=== PATIENT | female | born 1965 | race Caucasian/White ===

== ENCOUNTER → 2021-12-25 09:37 | Outpatient (CLI) | payer OTHER, SELFPAY ==
[2021-12-25 10:53] LABS: Hemoglobin 13.1 g/dL (12.0-16.0); Mean Corpuscular HGB Conc 33.5 % (30-36); Mean Corpuscular Hemoglobin 30.3 PG (26-34); Mean Corpuscular Volume 90.5 fL (80-100); Platelet Count 313 X10^3/uL (150-400); Red Blood Cell Count 4.31 X10^6/uL (4.0-5.2); Red Cell Distribution Width 13.1 % (11.6-14.8); White Blood Cell Count 5.3 X10^3/uL (4.5-11.0)
[2021-12-25 11:01] LABS: Hemoglobin A1C% w Est Avg Glu 5.8 % (4.0-6.0)
[2021-12-25 11:12] LABS: Alanine Aminotransferase 27 IU/L (<35); Albumin 4.2 g/dL (3.5-5.0); Albumin Globulin Ratio 1.1 (1.0-2.8); Alkaline Phosphatase 60 U/L (38-126); Aspartate Aminotransferase 31 IU/L (14-36); BUN Creatinine Ratio 14.9 (6-22); Bilirubin Total 0.5 mg/dL (0.2-1.3); Blood Urea Nitrogen 13 mg/dL (7-17); Calcium 9.2 mg/dL (8.4-10.2); Carbon Dioxide 25 mmol/L (22-32); Chloride 105 mmol/L (98-107); Cholesterol 255 mg/dL (140-199); Estimated Glomerular Filt Rate > 60 mL/min (>60); Globulin 3.9 g/dL (1.7-4.1); Glucose 107 mg/dL (70-100); HDL Cholesterol 46 mg/dL (40-60); HEMOLYSIS < 15 (0-50); LDL Cholesterol Calculated 189 mg/dL (<100); Potassium 4.3 mmol/L (3.4-5.1); Sodium 140 mmol/L (137-145); Total Protein 8.1 g/dL (6.3-8.2); Triglycerides 98 mg/dL (35-150)
[2021-12-25 11:38] LABS: TSH w/ Reflex to FT4 2.45 uIU/mL (0.47-4.68)
== END ==
PROVIDERS: Family Provider Urology; PCP Internal Medicine; Referring Provider Internal Medicine; Visit Provider Internal Medicine
DX: R53.83 Other fatigue (principal); R73.01 Impaired fasting glucose
CPT/HCPCS: 36415; 80053; 80061; 83036; 84443; 85027

== ENCOUNTER → 2022-10-28 08:05 | Outpatient (CLI) | payer OTHER, SELFPAY ==
[2022-10-28 10:08] LABS: Hemoglobin A1C% w Est Avg Glu 5.5 % (4.0-6.0)
[2022-10-28 10:46] LABS: Cholesterol 262 mg/dL (140-199); Glucose 101 mg/dL (70-100); HDL Cholesterol 52 mg/dL (40-60); LDL Cholesterol Calculated 186 mg/dL (<100); Triglycerides 121 mg/dL (35-150)
[2022-10-31 21:33] LABS: QuantiFERON Mitogen Value >10.00 IU/mL (.); QuantiFERON Nil Value 0.19 IU/mL (.); QuantiFERON TB Gold Plus Negative (Negative); QuantiFERON TB1 Ag Value 0.09 IU/mL (.); QuantiFERON TB2 Ag Value 0.15 IU/mL (.)
== END ==
PROVIDERS: Family Provider Urology; PCP Internal Medicine; Referring Provider Internal Medicine; Visit Provider Internal Medicine
DX: E78.2 Mixed hyperlipidemia (principal); R73.01 Impaired fasting glucose; Z20.9 Contact with and (suspected) exposure to unspecified communicable disease
CPT/HCPCS: 36415; 80061; 82947; 83036; 86480

== ENCOUNTER → 2023-08-17 07:07 | Outpatient (CLI) | payer OTHER, SELFPAY ==
--- NOTE | 2023-08-17 07:10 | DI.RAD.S_ITS ---
PROCEDURE: XR SHOULDER RT MIN 2V INDICATIONS: shoulder pain TECHNIQUE: 3 views of the shoulder were acquired. COMPARISON: None. FINDINGS: Bones: No fractures or dislocations. No suspicious bony lesions. Visualized ribs appear intact. Mild degenerative changes of the acromioclavicular joint. Coracoclavicular and acromioclavicular intervals are maintained. Soft tissues: No suspicious soft tissue calcifications. IMPRESSION: No acute bony abnormality. Degenerative changes of the acromioclavicular joint. Dictated by: Dom Rios M.D. on 08/17/2023 at 8:53 Approved by: Dom Rios M.D. on 08/17/2023 at 8:54
--- NOTE | 2023-08-17 07:10 | DI.RAD.S_ITS ---
PROCEDURE: XR SHOULDER LT MIN 2V INDICATIONS: shoulder pain TECHNIQUE: 3 views of the shoulder were acquired. COMPARISON: None. FINDINGS: Bones: No fractures or dislocations. No suspicious bony lesions. Visualized ribs appear intact. Mild degenerative changes of the acromioclavicular joint. Coracoclavicular and acromioclavicular intervals are maintained. Soft tissues: No suspicious soft tissue calcifications. IMPRESSION: No acute bony abnormality. Mild acromioclavicular degenerative changes. Dictated by: Dom Rios M.D. on 08/17/2023 at 8:52 Approved by: Dom Rios M.D. on 08/17/2023 at 8:53
[2023-08-17 07:54] LABS: Add Manual Diff / Slide Review NO; Basophils Absolute Auto 100 /uL (0-100); Basophils Percent Auto 1.3 % (0-2); Eosinophils Absolute Auto 200 /uL (0-450); Eosinophils Percent Auto 2.4 % (2-4); Hematocrit 38.2 % (36-46); Hemoglobin 12.8 g/dL (12.0-16.0); Lymphocytes Absolute Auto 2100 /uL (1100-4500); Lymphocytes Percent Auto 31.3 % (25-40); Mean Corpuscular HGB Conc 33.4 % (30-36); Mean Corpuscular Hemoglobin 30.2 PG (26-34); Mean Corpuscular Volume 90.3 fL (80-100); Monocytes Absolute Auto 500 /uL (0-900); Monocytes Percent Auto 7.4 % (3-14); Neutrophils Absolute Auto 3900 /uL (1500-7000); Neutrophils Percent Auto 57.6 % (50-75); Platelet Count 337 X10^3/uL (150-400); Red Blood Cell Count 4.23 X10^6/uL (4.0-5.2); Red Cell Distribution Width 13.5 % (11.6-14.8); White Blood Cell Count 6.7 X10^3/uL (4.5-11.0)
[2023-08-17 08:04] LABS: Hemoglobin A1C% w Est Avg Glu 5.9 % (4.0-6.0)
[2023-08-17 08:13] LABS: Erythrocyte Sedimentation Rate 21 MM/HR (0-20)
[2023-08-17 08:21] LABS: Alanine Aminotransferase 28 IU/L (<35); Albumin 4.4 g/dL (3.5-5.0); Albumin Globulin Ratio 1.2 (1.0-2.8); Alkaline Phosphatase 60 U/L (38-126); Aspartate Aminotransferase 30 IU/L (14-36); BUN Creatinine Ratio 17.3 (6-22); Bilirubin Total 0.7 mg/dL (0.2-1.3); Blood Urea Nitrogen 17 mg/dL (7-17); C-Reactive Protein Quant 0.5 mg/dL (<1.0); Calcium 9.1 mg/dL (8.4-10.2); Carbon Dioxide 27 mmol/L (22-32); Chloride 108 mmol/L (98-107); Cholesterol 266 mg/dL (140-199); Estimated Glomerular Filt Rate > 60 mL/min (>60); Globulin 3.7 g/dL (1.7-4.1); Glucose 115 mg/dL (70-100); HDL Cholesterol 51 mg/dL (40-60); HEMOLYSIS < 15 (0-50); LDL Cholesterol Calculated 178 mg/dL (<100); Potassium 4.7 mmol/L (3.4-5.1); Sodium 140 mmol/L (137-145); Total Protein 8.1 g/dL (6.3-8.2); Triglycerides 183 mg/dL (35-150)
== END ==
LOC: LAB 07:09
PROVIDERS: Family Provider Urology; PCP Internal Medicine; Referring Provider Internal Medicine; Visit Provider Internal Medicine
DX: M25.511 Pain in right shoulder (principal); M25.512 Pain in left shoulder; R73.01 Impaired fasting glucose; E78.2 Mixed hyperlipidemia; M35.3 Polymyalgia rheumatica
CPT/HCPCS: 36415; 73030; 80053; 80061; 83036; 84443; 85025; 85651; 86140

== ENCOUNTER → 2024-12-06 10:51 | Outpatient (CLI) | payer OTHER, SELFPAY ==
--- NOTE | 2024-12-06 10:59 | DI.RAD.S_ITS ---
PROCEDURE: ORTHO-XR FOOT 3V WB RIGHT INDICATIONS: R FOOT PAIN TECHNIQUE: 3 weight-bearing views acquired of the foot. COMPARISON: None. 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 Old fracture medial 5th proximal phalangeal base results in mild deformity Joints: Mild degenerative change 1st MTP and moderate degenerative change in the interphalangeal joints . Soft tissues: No soft tissue abnormality. IMPRESSION: Chronic findings Dictated by: Lobo Gómez M.D. on 12/06/2024 at 13:29 Approved by: Lobo Gómez M.D. on 12/06/2024 at 13:31
== END ==
PROVIDERS: Family Provider Urology; PCP Internal Medicine; Referring Provider Podiatrist; Visit Provider Podiatrist
DX: M79.671 Pain in right foot (principal); M21.41 Flat foot [pes planus] (acquired), right foot; M20.41 Other hammer toe(s) (acquired), right foot; M20.5X1 Other deformities of toe(s) (acquired), right foot
CPT/HCPCS: 73630

== ENCOUNTER → 2024-12-13 07:59 | Outpatient (CLI) | payer OTHER, SELFPAY ==
[2024-12-13 09:32] LABS: Hemoglobin A1C% w Est Avg Glu 6.2 % (4.0-6.0)
[2024-12-13 09:45] LABS: Blood Urea Nitrogen 13 mg/dL (7-17); Calcium 9.4 mg/dL (8.4-10.2); Carbon Dioxide 26 mmol/L (22-32); Chloride 102 mmol/L (98-107); Cholesterol 137 mg/dL (140-199); Estimated Glomerular Filt Rate > 60 mL/min (>60); Glucose 111 mg/dL (70-99); HDL Cholesterol 47 mg/dL (40-60); HEMOLYSIS < 15 (0-50); Potassium 4.9 mmol/L (3.4-5.1); Sodium 137 mmol/L (137-145); Triglycerides 138 mg/dL (35-150)
== END ==
PROVIDERS: PCP Internal Medicine; Referring Provider Internal Medicine; Visit Provider Internal Medicine
DX: E78.2 Mixed hyperlipidemia (principal); R73.01 Impaired fasting glucose
CPT/HCPCS: 36415; 80048; 80061; 83036; 84450